=== PATIENT | male | born 1985 | race Caucasian/White ===

== ENCOUNTER 2025-04-14 23:40 | Day surgery (SDC) | payer BC, SELFPAY ==
[2025-04-14] MEDS: PROTONIX IV 40 MG IV (23:06)
[2025-04-14] MEDS: NSS 1000 IV (23:09)
[2025-04-14 23:17] VITALS: BP 132/98
[2025-04-14 23:20] LABS: Hematocrit 43.6 % (39.0-52.0); Hemoglobin 15.0 g/dL (13.0-18.0); Mean Corp Hgb Conc. 34.4 g/dL (33.0-37.0); Mean Corpuscular Volume 89.7 fL (80.0-94.0); Nucleated Red Blood Cells % 0 % (-); Platelet Count 267 10^3/uL (130-400); Red Cell Dist. Width 12.7 % (11.5-14.5)
[2025-04-14 23:21] VITALS: BMI 28.1
[2025-04-14 23:30] VITALS: BP 132/98
--- NOTE | 2025-04-14 23:36 | CON.GI ---
Consultation
-
Date/Time Consultation Requested: 04/14/2025
Date/Time Consultation Performed: 04/14/2025
Performing Provider: Monico Sosa
Reason for Consultation: food impaction
Medical History
Chief Complaint / HPI
Chief Complaint: food impaction
History of Present Illness:
39 year old male with h/o HPL and rosacea who p/w food impaction. He ate dinner around 7 pm and noted his food getting stuck in his chest. Able to tolerate own secretion. Tried to drink water to disimpact the food bolus but has been vomiting
water. Uncomfortable but denies pain. He had multiple similar episodes in the past, was advised to have endoscopic evaluation but did not follow up.
Past Medical History
Past Medical History: Hypercholesterolemia and Other
Past Surgical History: None
Social History
Tobacco: Non-Smoker
Alcohol: Occasional
Family History
Family History: Reviewed & Not Pertinent
Allergies / Home Medications
Allergy/AdvReac Type Severity Reaction Status Date / Time
No Known Allergies Allergy Verified 04/14/25 22:48
�Medication �Instructions �Recorded
No Meds [No Current Medications] 04/14/25
Review of Systems
Vital Signs
Pulse Resp BP Pulse Ox
76 20 132/98 95
04/14/25 23:20 04/14/25 23:20 04/14/25 23:17 04/14/25 23:20
Physical Exam
Exam
General: Well Developed and Well Nourished
HEENT: Normocephalic and Anicteric
Respiratory: Clear
Cardiac: S1/S2
GI: Soft, Non Tender, Non Distended and Normal Bowel Sounds
Results
WBC 8.4 10^3/uL (4.8-10.8) 04/14/25 23:14
Hgb 15.0 g/dL (13.0-18.0) 04/14/25 23:14
Hct 43.6 % (39.0-52.0) 04/14/25 23:14
MCV 89.7 fL (80.0-94.0) 04/14/25 23:14
Plt Count 267 10^3/uL (130-400) 04/14/25 23:14
Absolute Neuts (auto) 4.9 10^3/uL (1.4-6.5) 04/14/25 23:14
Diagnostic Image Results:
Prior GI Procedures:
EGD:
Colonoscopy:
Assessment / Plan
-
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
Impression / Rec:
1. Suspected food impaction - felt bolus of food stuck after his dinner around 7 pm. Able to tolerate oral secretions but cannot tolerate water/fluids when he tried to force the food bolus by drinking water for past few hours. He had few episodes
of similar symptoms previously and was advised to have endoscopic evaluation but did not follow up. Suspect food impaction with likely underlying EoE. Will plan on EGD for evaluation/disimpaction.
Total Time Spent with Patient (in minutes): 55
-
-
Thank you for consultation and allowing me to participate in the patient's care. Please call the contract designer GI physician during the after hours with any questions or concerns.
[2025-04-14 23:39] LABS: ALT (SGPT) 38 U/L (0-50); AST (SGOT) 36 U/L (17-59); Albumin 5.3 g/dl (3.5-5.0); Alkaline Phosphatase 47 U/L (38-126); Blood Urea Nitrogen 14 mg/dl (9-20); Calcium 10.1 mg/dl (8.4-10.2); Carbon Dioxide 27 mmol/L (22-30); Chloride 108 mmol/L (98-107); Estimated Creatinine Clearance 116 ml/min; Glucose 99 mg/dl (70-99); Potassium 4.1 mmol/L (3.5-5.1); Sodium 145 mmol/L (135-145); Total Protein 8.2 g/dl (6.3-8.2); eGFR > 60.00
--- NOTE | 2025-04-14 23:48 | ED.GENMED ---
History of Present Illness
General
Chief Complaint: Esophageal Problem
Source: patient
Exam Limitations: none
Nursing documentation reviewed up to this point in time: agreed with
History of Present Illness
History of Present Illness:
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 He states approximately 3 hours ago while eating a chicken sandwich and chatting with his he inadvertently swallowed a partially
chewed piece of chicken which he believes is now lodged in his distal esophagus. He complains of moderate discomfort lower substernal region and notes immediate regurgitation with attempted swallowing water. He denies gagging or coughing or
choking. No shortness of breath. He has had similar episodes sporadically over the past 12 to 18 months, perhaps 4-5 other episodes but all have resolved with tincture of time. He denies hematemesis. He denies frequent GERD episodes.
He takes no medicines on a daily basis.
Past History
Past History
ED Past Medical History: None
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
Social History
Tobacco: Non-smoker
Alcohol: Occasional
Drug: None
Personal:
Living: with family
Employment: Employed (ED physician)
Family History
Family History: Other (Noncontributory)
Phy Exam
Physical Exam
Physical Exam:
GENERAL: 39-year-old gentleman appears his stated age, bright and alert, pleasant, appears in no acute distress. Handling secretions well. No respiratory distress.
EYE: anicteric
NECK: Supple, no JVD.
ENT: oral mucosa is moist. No rhinorrhea.
CARDIAC: Regular rate and rhythm. no murmur.
LUNGS: Clear breath sounds bilaterally, no acute respiratory distress, no wheezes/rales/rhonchi
ABDOMEN: Soft, nondistended, without focal tenderness
NEUROLOGICAL: Alert and oriented x3, no focal neuro deficits. Gait is lucas and steady.
SKIN: Warm and dry, normal color, skin intact. No rash.
MUSCULOSKELETAL: No C/C/E. peripheral pulses are full and equal b/l. No palpable tenderness.
PSYCH: Normal and appropriate interaction.
Course
Orders/Labs/Results
Orders:
Orders
04/14/25 22:57
0.9% Sodium Chloride 1000 ml [Nss] 1,000 ml IV BOLUS
Glucagon [GlucaGen] 1 mg IV NOW STA
Pantoprazole [Protonix IV] 40 mg IV NOW STA
04/14/25 23:03
Sodium Chloride 0.9% [Sodium Chloride 0.9% For Inhalation 3 ml] 1 vial .ROUTE .STK-MED ONE
04/14/25 23:14
Complete Blood Count/With Diff Urgent
Comprehensive Metabolic Panel Urgent
04/14/25 23:39
Succinylcholine Chloride [Succinylcholine] 200 mg .ROUTE .STK-MED ONE
Abnormal Lab Results
04/14/25
23:14
Absolute Monos (auto) 0.8 H 10^3/uL
(0.1-0.6)
Chloride 108 H mmol/L
(98-107)
Albumin 5.3 H g/dl
(3.5-5.0)
04/14/25 23:14
04/14/25 23:14
Vital Signs
Initial and Last Documented VS:
Initial Vital Signs
BP
132/98
04/14/25 23:17
Last Documented Vital Signs
Pulse Resp BP Pulse Ox
76 20 132/98 95
04/14/25 23:20 04/14/25 23:20 04/14/25 23:17 04/14/25 23:20
MDM/Problems Addressed
Differential Diagnosis Includes:
History concerning for distal esophageal food impaction. Especially in light of immediate regurgitation after swallowing water.
Overall well in appearance. Handling secretions well. No respiratory distress.
ACS, bowel obstruction are unlikely.
No hematemesis. Nothing to suggest Radha-Johns tear or upper GI bleed.
Patient has already contacted GI. Dr. Sosa is en route as well as the GI team.
Will trial an IV dose of glucagon and give an IV dose of Protonix as well.
Will check routine labs.
MDM/Problems Addressed:
Esophageal obstruction versus stricture.
*Pulse Oximetry
SaO2: 95
Oxygen Mode of Delivery: Room air
Patient hypoxic: no
*Critical Care Note
Total Time (30-74mins, 75-104mins- exclusive of procedures): Not Applicable
ED Attending Note
-
Portions of this chart may have been created with voice recognition software.� Occasional wrong word or��sound alike� substitutions may have occurred due to the inherent limitations of voice recognition software.
Discharge Plan
Departure
Patient Disposition: GI LAB
Date of Disposition: 04/14/25
Time of Disposition: 23:48
Admit to doctor: Monico Sosa
Presentation/result/management discussed w/ accepting MD/DO: GI
Discharge Problem:
Distal esophageal food impaction
Prescriptions:
No Action
No Current Medications
0
Referrals:
Jaun Chu DO [Family Provider, Family Practice]
Interventions
Interventions:
*Risk Screen - Suicide Last Done: 04/14/25 22:48
*General Assessment Last Done: 04/14/25 22:48
*Neglect/Abuse Screening Last Done: 04/14/25 22:48
*ED- Fall Risk Assessment Last Done: 04/14/25 22:48
*ED COVID-19 Vaccine History Last Done: 04/14/25 22:48
*Nursing Disposition Last Done: 04/14/25 23:30
PP-Olihzo-Ewotijqwvx Assessment Last Done: 04/14/25 23:21
ED-EENT Assessment Last Done: 04/14/25 23:25
Discharge Date and Time
Discharge Date/Time: 04/14/25 23:30
Print Language: PUERTO RICAN
[2025-04-15 00:17] VITALS: BP 125/76; BP 132/98
[2025-04-15 00:33] VITALS: BP 132/95
--- NOTE | 2025-04-15 00:34 | SUR.PHASEI ---
Dr. Sosa and Dr. Wendy benton if pt. uber's home.
== END 2025-04-15 00:50 | disposition home or self-care (01) ==
LOC: GI 23:40
PROVIDERS: ATTENDING PHYSICIAN Internal Medicine Gastroenterology; EMERGENCY PHYSICIAN Emergency Medicine; FAMILY PHYSICIAN Family Medicine
DX: K20.0 Eosinophilic esophagitis (principal); K22.89 Other specified disease of esophagus; R13.10 Dysphagia, unspecified; T18.128A Food in esophagus causing other injury, initial encounter; W44.F3XA Food entering into or through a natural orifice, initial encounter
CPT/HCPCS: 43239; 80053; 85025; 88305; 96374; 96375; 99285; J1610